=== PATIENT | female | born 1980 | race Caucasian/White ===

== ENCOUNTER 2019-03-15 17:04 | Emergency (ER) | payer BC, OTHER ==
[2019-03-15 17:13] VITALS: BP 116/73; PULSE 87; TEMP 98.2; BMI 24.3
--- NOTE | 2019-03-15 17:19 | PDOC ---
History of Present Illness - General Chief Complaint: Cold Symptoms Stated Complaint: DRY COUGH Time Seen by Provider: 03/15/19 17:19 Past History - Past Medical History Allergies/Adverse Reactions: Allergies Allergy/AdvReac Type Severity Reaction Status Date / Time No Known Allergies Allergy Unverified 03/15/19 17:04 Home Medications: Ambulatory Orders Alprazolam [Xanax] 0.5 mg PO ASDIR 03/15/19 Bupropion HCl [Wellbutrin -] 200 mg PO DAILY 03/15/19 traZODone HCL [Trazodone HCl] 50 mg PO HS 03/15/19 COPD: No - Psycho Social/Smoking Cessation Hx Smoking History: Never smoked Hx Alcohol Use: Yes (OCASIONAL) Drug/Substance Use Hx: Yes (MARIJUANA) *Physical Exam - Vital Signs Last Vital Signs Temp Pulse Resp BP Pulse Ox 98.2 F 87 18 116/73 96 03/15/19 17:04 03/15/19 17:04 03/15/19 17:04 03/15/19 17:04 03/15/19 17:04 ED Treatment Course - LABORATORY CBC & Chemistry Diagram: 03/15/19 18:32 03/15/19 18:32 Discharge - Discharge Information Problems reviewed: Yes Clinical Impression/Diagnosis: Cough Condition: Stable Disposition: HOME - Admission No - Follow up/Referral - Patient Discharge Instructions Patient Printed Discharge Instructions: DI for Viral Upper Respiratory Infection -- Adult Additional Instructions: You were seen in the ER for cough, weakness. Your chest x ray was normal. Your blood work was normal as well - no signs of anemia, no change in your white blood cell count. Please follow up with your primary care provider as soon as possible, in the next 7 days. Please return to the ER if you develop high fevers , worsening weakness, or difficulty breathing. - Post Discharge Activity
--- NOTE | 2019-03-15 17:28 | PDOC ---
Attending Attestation - Resident Resident Name: Unruly Khalil - HPI HPI: 03/15/19 18:45 Pt presents to the ED complaining of a month long history of persistent
[2019-03-15 18:56] LABS: BASO % 0.5 % (0-2.0); EOS % 2.1 % (0-4.5); HEMATOCRIT 43.2 % (32.4-45.2); HEMOGLOBIN 14.6 GM/dl (10.7-15.3); LYMPH % 18.4 % (8-40); MCHC 33.7 g/dl (32.0-36.0); MONO % 9.8 % (3.8-10.2); NEUT % 69.2 % (42.8-82.8); PLATELET COUNT 266 K/MM3 (134-434); RBC 5.02 M/mm3 (3.60-5.2); WHITE BLOOD COUNT 6.8 K/mm3 (4.0-10.8)
[2019-03-15 19:05] LABS: ALBUMIN 4.4 g/dl (3.4-5.0); BILIRUBIN,TOTAL 0.7 mg/dl (0.2-1); CALCIUM 8.9 mg/dl (8.5-10); CREATININE 0.6 mg/dl (0.55-1.3); POTASSIUM 3.6 mmol/L (3.5-5.1); TOT PROT 7.4 g/dl (6.4-8.2)
[2019-03-15] MEDS ORDERED: SODIUM CHLORIDE 1,000 ML IV ONE (19:28)
== END 2019-03-15 20:13 | disposition home or self-care (01) ==
LOC: FER 17:04
PROC: 3E0337Z Introduction of Electrolytic and Water Balance Substance into Peripheral Vein, Percutaneous Approach (ICD-10-PCS; principal; 2019-03-15)
DX: R05 Cough (principal)
CPT/HCPCS: 36415; 71046-TC-FY; 80053; 84703; 85025; 87798; 99283-25; J7030

== ENCOUNTER 2020-05-20 11:50 | Emergency (ER) | payer BC | END 2020-05-20 13:05 | disposition home or self-care (01) | LOC: JVIRT 11:50 | DX: Z20.822 Contact with and (suspected) exposure to COVID-19 (principal) | CPT/HCPCS: C9803; G2251-GT; Q3014-GT; U0003 ==